=== PATIENT | male | born 1965 | race Caucasian/White ===

== ENCOUNTER → 2020-10-18 | Outpatient (CLI) | payer BC ==
[~2020-10-18] MED LIST: IOHEXOL 240 MG/ML 50ML VIAL. ONE
--- NOTE | 2020-10-18 17:59 | RAD ---
PQRS Compliance Statement: One or more of the following individualized dose reduction techniques were utilized for this examination: 1. Automated exposure control 2. Adjustment of the mA and/or kV according to patient size 3. Use of iterative reconstruction technique CT ABD PEL W/ORAL CONTRST ONLY Clinical Indication: Reason: BLOODY STOOLS, STAGE 3 POLYCYSTIC, ENLARGED LYMPH NODES IN NECK Comparison: None. Technique: Helical CT imaging of the abdomen and pelvis is performed without IV contrast. Or oral contrast is administered. Findings: Minimal atelectasis or scarring in the periphery of the left lower lobe posteriorly. Cardiac size is normal. Coronary artery disease. There are enlarged polycystic kidneys with innumerable cysts with replacement of the parenchyma. Some of the cysts are hyperdense. Multiple hepatic cysts are also noted. The gallbladder, spleen, pancreas, adrenal glands, and abdominal aorta caliber are normal. There is no obvious abnormality of the stomach. There is no small bowel obstruction, oral contrast reaches the colon. The appendix is normal. There is no colon wall thickening. No abdominal adenopathy or free fluid. The urinary bladder is normal. Seminal vesicles are symmetric. Prostate borderline enlarged. No pelvic free fluid. No acute bone abnormality. IMPRESSION: 1. No acute abdominal or pelvic abnormality. 2. Findings of autosomal dominant polycystic kidney disease. Electronically signed by: Israel Weller MD (10/18/2020 5:56 PM) [facility]
== END ==
LOC: CT 16:21
PROVIDERS: ATTEND Family Medicine
DX: N28.1 Cyst of kidney, acquired (principal); I25.10 Atherosclerotic heart disease of native coronary artery without angina pectoris; K76.89 Other specified diseases of liver
CPT/HCPCS: 74176